=== PATIENT | female | born 1990 | race African-American/Black ===

== ENCOUNTER 2016-09-28 22:47 | Emergency (ER) | payer BC ==
--- NOTE | ~2016-09-28 | EKG ---
PATIENT: DIANDRA ROSALES UNIT #: [id number] Ventricular Rate: 78 BPM Atrial Rate: 78 BPM P-R Interval: 134 ms QRS Duration: 86 ms Q-T Interval: 398 ms QTC Calculation(Bezet): 453 ms P Holmes: 23 degrees Calculated R Holmes: 15 degrees Calculated T Holmes: 34 degrees Diagnosis Line: Normal sinus rhythm Diagnosis Line: Normal ECG Diagnosis Line: No previous ECGs available Diagnosis Line: Confirmed by KURTIS PURDY MD ([id number]) on Diagnosis Line: 09/30/2016 1:28:17 PM INTERPRETING MD: CAMMIE
--- NOTE | ~2016-09-28 | CR72 ---
[facility] A Service of [facility] & [facility] / [facility] RADIOLOGY TEXT RESULTS PATIENT: DIANDRA ROSALES LOCATION: [facility] : [birth year] UNIT #: [id number] AGE: [address]: Brooke Mcbride MD SEX: F ORDER DR: [id number] [facility] [address] [place], [place] [address] [id number] E MR#: [id number] Acc #: [id number] NAME: DIANDRA ROSALES : 1990 SEX: F STUDY DATE/TIME: 09/28/2016 23:56 UNIT: [facility] ROOM: STUDY DESCRIPTION: CR Chest Single View Portable Attending Physician: Brooke Mcbride M.D. Ordering Physician: Ed Edmundo Sheppard M.D. Primary Care Physician: Margo Luz M.D. MEDICAL IMAGING REPORT This report is preliminary unless electronic signature is present EXAM Portable chest. INDICATIONS Chest pain today. PROCEDURE Frontal view chest. COMPARISON 03/19/2015 FINDINGS Heart size is stable. Lungs are clear. No pleural fluid. No pneumothorax. IMPRESSION No active process. Dictated by... Rosalino Friedman M.D. THIS IS AN ELECTRONICALLY VERIFIED REPORT Rosalino Friedman M.D. at 10/02/2016 7:18 AM EED/lisa TD: 09/29/2016 08:43 JOB #: [id number] MEDICAL IMAGING REPORT Page 1 of 1 COPY
[2016-09-29 00:50] LABS: BASOPHIL# 0.1 X10e3 (0-0.3); BASOPHIL% 0.6 % (0-2.5); EOSINOPHIL# 0.1 X10e3 (0-0.7); EOSINOPHIL% 0.7 % (0.0-7.0); HEMATOCRIT 39.4 % (35.0-45.0); HEMOGLOBIN 12.7 gm/dL (12.0-16.0); LYMPHOCYTE# 5.1 X10e3 (1.0-3.5); LYMPHOCYTE% 42.4 % (17.0-45.0); MEAN CELL VOLUME 82.5 FL (83-96); MEAN CORPUSCULAR HEMOGLOBIN 26.6 PG (28-34); MEAN CORPUSCULAR HGB CONC 32.2 g/dL (30-36); MEAN PLATELET VOLUME 7.7 FL (6.5-11.5); MONOCYTE# 0.8 X10e3 (0-1.0); MONOCYTE% 6.3 % (3.0-12.0); NEUTROPHIL# 6.1 X10e3 (1.5-7.1); PLATELET COUNT 323 X10e3 (140-420); RED BLOOD COUNT 4.78 X10e (3.90-5.30); WHITE BLOOD COUNT 12.1 X10e3 (4.0-10.5)
[2016-09-29 00:52] LABS: DIFF IND NO
[2016-09-29 00:54] LABS: POC - CKMB <1.0 ng/mL (0.0-7.9); POC - TROPONIN <0.05 ng/mL (<=0.05)
[2016-09-29 01:07] LABS: PARTIAL THROMBOPLASTIN TIME 26.7 SECONDS (23.5-31.3); PROTHROMBIN TIME (PATIENT) 10.2 SECONDS (9.6-11.5)
[2016-09-29 01:13] LABS: URINE SOURCE CLEAN CATCH
[2016-09-29 01:18] LABS: ALBUMIN SERUM 3.9 g/dL (3.5-5.0); BILIRUBIN, DIRECT 0.1 mg/dL (0.0-0.2); BILIRUBIN,INDIRECT 0.4 mg/dL (0.0-0.9); BILIRUBIN,TOTAL 0.5 mg/dL (0.2-2.0); CALCIUM SERUM 9.3 mg/dL (8.4-10.2); CREATININE SERUM 0.5 mg/dL (0.6-1.4); GLOM FILT RATE Estimated 154.8 mL/min (>60); POTASSIUM 4.1 mmol/L (3.5-5.1)
[2016-09-29 01:34] LABS: URINE APPEARANCE CLEAR; URINE BILIRUBIN NEG (NEG); URINE BLOOD NEG (NEG); URINE COLOR YELLOW; URINE GLUCOSE NEG (NEG); URINE KETONE NEG (NEG); URINE LEUKOCYTE ESTERASE NEG (NEG); URINE NITRATE NEG (NEG); URINE PROTEIN NEG (NEG); URINE SPECIFIC GRAVITY 1.022 (1.003-1.035)
[2016-09-29 01:49] LABS: CULTURE INDICATED? NO
[2016-09-29 02:42] LABS: POC - CKMB <1.0 ng/mL (0.0-7.9); POC - TROPONIN <0.05 ng/mL (<=0.05)
[2016-09-29 03:54] LABS: AMPHETAMINE NEG (NEG); BARBITURATES NEG (NEG); BENZODIAZEPINES NEG (NEG); COCAINE NEG (NEG); MARIJUANA NEG (NEG); OPIATES NEG (NEG); TRICYCLIC ANTIDEPRESSANTS NEG (NEG); U METHADONE NEG (NEG)
== END 2016-09-29 02:48 | disposition home or self-care (01) ==
LOC: CED 22:47
PROVIDERS: Emergency Medicine
DX: R07.89 Other chest pain (principal); R51 Headache; R11.0 Nausea; Z88.0 Allergy status to penicillin; Z88.2 Allergy status to sulfonamides; Z88.1 Allergy status to other antibiotic agents; Z91.040 Latex allergy status
CPT/HCPCS: 71010; 80048; 80076; 80307; 81003; 82553; 84484; 84703; 85025; 85610; 85730; 93005; 96361; 96374; 99284; J1885; J2405